=== PATIENT | male | born 1980 | race Caucasian/White ===

== ENCOUNTER 2017-03-29 03:45 | Emergency (ER) | payer OTHER ==
[~2017-03-29] VITALS: Ht 182.9 cm; Wt 63.5 kg
[~2017-03-29 03:45] MED LIST: ACET325 PO; ALBU90OI INH; AMIT50 PO; Amitriptyline H50 MG PO; BENZ2 PO; CARI350; CEPH500 PO; CHLO100 PO; CLIN300 PO; CLON2 PO; Cleocin HCl150 MG PO; DIVA125EC; FLUO20 PO; HTN MED; HYDPAM50 PO; IBUP800; INVEGA PO; LITH300C PO; LITH300ER PO; LOVA20 PO; LOXA25 PO; LURASIDONE; Lopressor 25 mg25 MG PO; MELO7.5 PO; METO25 PO; METO50 PO; METO50ER PO; Mobic7.5 MG PO; OLAN10 PO; OMEP20ER PO; OXYACE5T PO; PARO30 PO; PHENY100ER PO; PIND5 PO; PROACE100; QUET200 PO; QUET25; SERT50 PO; SIMV10 PO; SIMV5; SULTRISS PO; Simvastatin20 MG PO; TRAZ150T57 PO; VENL75ER PO; VRAYLAR3 MG PO; Zyprexa20 MG PO; [UNRECOGNIZED DRUG - OTHER]; [UNRECOGNIZED DRUG - REMARK]; [UNRECOGNIZED DRUG - REMARK]
== END 2017-03-29 05:15 ==
LOC: ER 03:45
DX: S06.9X1A Unspecified intracranial injury with loss of consciousness of 30 minutes or less, initial encounter (principal); F15.129 Other stimulant abuse with intoxication, unspecified; F31.9 Bipolar disorder, unspecified; F20.9 Schizophrenia, unspecified; I10 Essential (primary) hypertension; E78.00 Pure hypercholesterolemia, unspecified; Z88.0 Allergy status to penicillin; Z88.8 Allergy status to other drugs, medicaments and biological substances; Z79.899 Other long term (current) drug therapy; F17.200 Nicotine dependence, unspecified, uncomplicated; V48.0XXA Car driver injured in noncollision transport accident in nontraffic accident, initial encounter
CPT/HCPCS: 70450; 71046; 72125; 99284

== ENCOUNTER 2020-03-02 21:53 | Inpatient (IN) | payer MEDICARE, OTHER ==
[~2020-03-02] VITALS: Ht 180.3 cm; Wt 118.3 kg
[2020-03-02 22:37] LABS: BASOPHILS ABSOLUTE AUTO 0.04 K/mm3 (0.00-0.23); BASOPHILS PERCENT AUTO 0 % (0-2); EOSINOPHILS ABSOLUTE AUTO 0.15 K/mm3 (0.00-0.68); EOSINOPHILS PERCENT AUTO 2 % (0-6); Hematocrit 38.3 % (37.0-53.0); Hemoglobin 12.8 g/dL (13.5-17.5); IMMATURE GRAN ABSOLUTE AUTO 0.05 K/mm3 (0.00-0.10); IMMATURE GRAN PERCENT AUTO 1 % (0-1); LYMPHOCYTES ABSOLUTE AUTO 1.76 K/mm3 (0.84-5.20); LYMPHOCYTES PERCENT AUTO 18 % (21-46); MONOCYTES ABSOLUTE AUTO 1.77 K/mm3 (0.16-1.47); MONOCYTES PERCENT AUTO 18 % (4-13); Mean Corpuscular HGB 28.1 pg (26.0-34.0); Mean Corpuscular HGB Conc 33.4 g/dL (31.5-36.5); Mean Corpuscular Volume 84 fL (80-100); Mean Platelet Volume 10.5 fL (9.1-12.4); NEUTROPHILS ABSOLUTE AUTO 6.18 K/mm3 (1.96-9.15); NEUTROPHILS PERCENT AUTO 62 % (41-73); Platelet Count 222 K/mm3 (150-400); RDW Coefficient Variation 11.4 % (11.7-14.2); RDW Standard Deviation 34.8 fL (35.1-46.3); Red Blood Cell Count 4.56 M/mm3 (4.30-5.90); White Blood Cell Count 9.95 K/mm3 (4.00-11.30)
[2020-03-02 22:51] LABS: Alanine Aminotransfer (ALT/SGP 24 U/L (12-78); Albumin, Blood 3.1 g/dL (3.4-5.0); Albumin/Globulin Ratio 0.9 (0.8-1.8); Alk Phos 91 U/L (50-136); Anion Gap 5 mmol/L (6-16); Aspartate Aminotrans (AST/SGOT 15 U/L (12-37); Bilirubin, Total 0.8 mg/dL (0.1-1.0); Blood Urea Nitrogen 11 mg/dL (8-24); Bun/Creatinine Ratio 14.9 (12.0-20.0); CO2, Blood 26 mmol/L (21-32); Calcium, Blood 8.8 mg/dL (8.5-10.1); Chloride, Blood 106 mmol/L (98-108); Creatinine, Blood 0.74 mg/dL (0.60-1.20); Globulin, Blood 3.5 g/dL (2.2-4.0); Glomerular Filtration Rate >60 (60-); Glucose, Blood 169 mg/dL (70-99); Sodium, Blood 137 mmol/L (136-145); Total Protein, Blood 6.6 g/dL (6.4-8.2); Troponin I <0.015 ng/mL (0.000-0.040)
[2020-03-02 23:28] LABS: International Normalized Ratio 3.52; Prothrombin Time Results 35.1 Sec (9.7-11.5)
[2020-03-02 23:34] LABS: Influenza A, PCR Negative (NEGATIVE); Influenza B, PCR Negative (NEGATIVE); Resp Syncytial Virus, PCR Negative (NEGATIVE); SARS-Cov-2 (COVID-19) PCR, MMC Negative (NEGATIVE)
[2020-03-03 08:02] LABS: Source, Urine Clean Catch
[2020-03-03 08:11] LABS: Appearance, Urine Clear (Clear); Bilirubin, Urine Neg (Neg); Blood, Urine Neg (Neg); Color, Urine Yellow (P-Yellow); Glucose Qualitative, Urine Neg (Neg); Ketones, Urine Neg (Neg); Leukocyte Esterase, Urine Neg (Neg); Nitrite, Urine Neg (Neg); Protein, Urine 1+ (Neg); Urobilinogen, Urine 2+ (Normal)
[2020-03-03] MEDS ORDERED: QUET300 PO ×3 (09:31→09:33)
[2020-03-03] MEDS ORDERED: Jantoven3 MG PO (09:33)
[2020-03-03] MEDS ORDERED: BUSP5 (09:34)
[2020-03-03] MEDS ORDERED: METO50ER PO (09:34)
[2020-03-03] MEDS ORDERED: Amiodarone HCl200 MG PO (09:35)
[2020-03-03] MEDS ORDERED: BUSP5 PO (09:35)
[2020-03-03] MEDS ORDERED: METF500 PO (09:38)
[2020-03-03] MEDS ORDERED: DULO30 PO (09:39)
[2020-03-04 04:29] LABS: International Normalized Ratio 2.99; Prothrombin Time Results 30.1 Sec (9.7-11.5)
[2020-03-05 04:18] LABS: International Normalized Ratio 3.06; Prothrombin Time Results 30.7 Sec (9.7-11.5)
[2020-03-05] MEDS ORDERED: Pacerone400 MG PO (13:15)
[2020-03-05] MEDS ORDERED: ACET325 PO (13:18)
[2020-03-05] MEDS ORDERED: METOPROLOL TAR100 M1 PO (13:48)
== END 2020-03-05 14:21 | disposition home or self-care (01) | DRG 309 ==
LOC: ER 21:53 → ICUW 21:54 → PCU 03-03 14:47 → ICUW 03-03 14:47 → PCU 03-03 18:04
PROVIDERS: Emergency Medicine; ADMIT Family Medicine
PROC: 5A2204Z Restoration of Cardiac Rhythm, Single (ICD-10-PCS; principal; 2020-03-02)
DX: I48.19 Other persistent atrial fibrillation (principal); J98.11 Atelectasis; E78.00 Pure hypercholesterolemia, unspecified; F31.9 Bipolar disorder, unspecified; F20.9 Schizophrenia, unspecified; Z95.2 Presence of prosthetic heart valve; Z87.891 Personal history of nicotine dependence; E66.01 Morbid (severe) obesity due to excess calories; Z20.828 Contact with and (suspected) exposure to other viral communicable diseases; I10 Essential (primary) hypertension; Z79.01 Long term (current) use of anticoagulants; R07.81 Pleurodynia; Z68.36 Body mass index [BMI] 36.0-36.9, adult
CPT/HCPCS: 0241U; 36415; 71045; 71046; 74018; 80053; 82947; 83605; 83880; 84145; 84484; 85025; 85610; 87040; 92960; 93005; 93010; 96365; 96375; 99285-25; A9270; A9270-GY; G0378; J0282; J0696; J2704; J3010; J7030; J7060

== ENCOUNTER → 2020-10-15 | Outpatient (CLI) | payer MEDICARE, OTHER ==
[~2020-10-15] MED LIST changes: +Amiodarone HCl200 MG PO; +BUSP5; +BUSP5 PO; +DULO30 PO; +Jantoven3 MG PO; +METF500 PO; +METOPROLOL TAR100 M1 PO; +Pacerone400 MG PO; +QUET300 PO
[2020-10-15 16:11] LABS: Microalb/Creat Ratio UR, Rand 5.091 mg/g (0.000-30.000); Microalbumin, Random Urine 5.6 mg/L (0.000-20.000)
== END | disposition home or self-care (01) ==
LOC: LAB 13:47 → LAB SHORT 13:47
PROVIDERS: Student in an Organized Health Care Education/Training Program
DX: E11.9 Type 2 diabetes mellitus without complications (principal)
CPT/HCPCS: 82043; 82570

== ENCOUNTER → 2021-02-19 | Outpatient (CLI) | payer MEDICARE, OTHER ==
[~2021-02-19] MED LIST changes: +Aspir 8181 MG PO; +ROSUVASTATIN CA40 MG
[2021-02-19 17:00] LABS: BASOPHILS ABSOLUTE AUTO 0.09 K/mm3 (0.00-0.23); BASOPHILS PERCENT AUTO 1 % (0-2); EOSINOPHILS ABSOLUTE AUTO 0.69 K/mm3 (0.00-0.68); EOSINOPHILS PERCENT AUTO 7 % (0-6); Hematocrit 44.7 % (37.0-53.0); Hemoglobin 14.9 g/dL (13.5-17.5); IMMATURE GRAN ABSOLUTE AUTO 0.04 K/mm3 (0.00-0.10); IMMATURE GRAN PERCENT AUTO 0 % (0-1); LYMPHOCYTES PERCENT AUTO 25 % (21-46); MONOCYTES ABSOLUTE AUTO 0.95 K/mm3 (0.16-1.47); MONOCYTES PERCENT AUTO 9 % (4-13); Mean Corpuscular HGB 29.2 pg (26.0-34.0); Mean Corpuscular HGB Conc 33.3 g/dL (31.5-36.5); Mean Corpuscular Volume 88 fL (80-100); Mean Platelet Volume 10.9 fL (9.1-12.4); NEUTROPHILS ABSOLUTE AUTO 6.02 K/mm3 (1.96-9.15); NEUTROPHILS PERCENT AUTO 58 % (41-73); Platelet Count 279 K/mm3 (150-400); RDW Coefficient Variation 12.5 % (11.7-14.2); RDW Standard Deviation 40.6 fL (35.1-46.3); White Blood Cell Count 10.39 K/mm3 (4.00-11.30)
== END | disposition home or self-care (01) ==
LOC: LAB SHORT 16:43
PROVIDERS: Family Medicine
DX: S39.012A Strain of muscle, fascia and tendon of lower back, initial encounter (principal); R10.9 Unspecified abdominal pain
CPT/HCPCS: 85025

== ENCOUNTER → 2021-06-03 | Outpatient (CLI) | payer MEDICARE, OTHER | END | disposition home or self-care (01) | LOC: LAB SHORT 11:50 | DX: E11.9 Type 2 diabetes mellitus without complications (principal); E55.9 Vitamin D deficiency, unspecified | CPT/HCPCS: 82306; 83036 ==

== ENCOUNTER 2021-08-22 23:05 | Emergency (ER) | payer MEDICARE, OTHER ==
[~2021-08-22] VITALS: Ht 180.3 cm; Wt 90.7 kg
[2021-08-23] MEDS ORDERED: Cleocin HCl150 MG PO (01:48)
== END 2021-08-23 02:09 | disposition home or self-care (01) ==
LOC: ER 23:05
DX: S61.411A Laceration without foreign body of right hand, initial encounter (principal); Y04.2XXA Assault by strike against or bumped into by another person, initial encounter; I10 Essential (primary) hypertension; Z79.01 Long term (current) use of anticoagulants; Z95.2 Presence of prosthetic heart valve; Z88.0 Allergy status to penicillin; Z88.8 Allergy status to other drugs, medicaments and biological substances; Z23 Encounter for immunization
CPT/HCPCS: 73130; 90714; A9270

== ENCOUNTER → 2022-05-25 | Outpatient (CLI) | payer MEDICARE, OTHER ==
[2022-05-25 19:10] LABS: BASOPHILS ABSOLUTE AUTO 0.06 K/mm3 (0.00-0.23); BASOPHILS PERCENT AUTO 1 % (0-2); EOSINOPHILS ABSOLUTE AUTO 0.36 K/mm3 (0.00-0.68); EOSINOPHILS PERCENT AUTO 3 % (0-6); Hematocrit 46.7 % (37.0-53.0); Hemoglobin 16.2 g/dL (13.5-17.5); IMMATURE GRAN ABSOLUTE AUTO 0.04 K/mm3 (0.00-0.10); IMMATURE GRAN PERCENT AUTO 0 % (0-1); LYMPHOCYTES ABSOLUTE AUTO 2.05 K/mm3 (0.84-5.20); LYMPHOCYTES PERCENT AUTO 16 % (21-46); MONOCYTES PERCENT AUTO 11 % (4-13); Mean Corpuscular HGB 29.6 pg (26.0-34.0); Mean Corpuscular HGB Conc 34.7 g/dL (31.5-36.5); Mean Corpuscular Volume 85 fL (80-100); Mean Platelet Volume 11.1 fL (9.1-12.4); NEUTROPHILS ABSOLUTE AUTO 8.86 K/mm3 (1.96-9.15); NEUTROPHILS PERCENT AUTO 69 % (41-73); Platelet Count 263 K/mm3 (150-400); RDW Coefficient Variation 12.7 % (11.7-14.2); RDW Standard Deviation 39.3 fL (35.1-46.3); Red Blood Cell Count 5.48 M/mm3 (4.30-5.90); White Blood Cell Count 12.77 K/mm3 (4.00-11.30)
[2022-05-25 20:52] LABS: C-REACTIVE PROTEIN, EXT RANGE 0.589 mg/dL (0.000-0.300)
[2022-05-25 20:53] LABS: Albumin, Blood 4.5 g/dL (3.4-5.0); Albumin/Globulin Ratio 1.4 (0.8-1.8); Bilirubin, Total 0.7 mg/dL (0.1-1.0); Calcium, Blood 9.4 mg/dL (8.5-10.1); Creatinine, Blood 0.86 mg/dL (0.60-1.20); Globulin, Blood 3.3 g/dL (2.2-4.0); Total Protein, Blood 7.8 g/dL (6.4-8.2)
== END | disposition home or self-care (01) ==
LOC: LAB SHORT 16:10 → LAB 16:10
PROVIDERS: Family Medicine
DX: R10.12 Left upper quadrant pain (principal); R11.2 Nausea with vomiting, unspecified
CPT/HCPCS: 80053; 83690; 85025; 86140

== ENCOUNTER 2022-05-27 16:32 | Emergency (ER) | payer MEDICARE, OTHER ==
[~2022-05-27] VITALS: Ht 180.3 cm; Wt 96.6 kg
[2022-05-27 16:59] LABS: BASOPHILS ABSOLUTE AUTO 0.09 K/mm3 (0.00-0.23); BASOPHILS PERCENT AUTO 1 % (0-2); EOSINOPHILS ABSOLUTE AUTO 0.62 K/mm3 (0.00-0.68); EOSINOPHILS PERCENT AUTO 6 % (0-6); Hemoglobin 13.9 g/dL (13.5-17.5); IMMATURE GRAN ABSOLUTE AUTO 0.04 K/mm3 (0.00-0.10); IMMATURE GRAN PERCENT AUTO 0 % (0-1); LYMPHOCYTES ABSOLUTE AUTO 2.87 K/mm3 (0.84-5.20); LYMPHOCYTES PERCENT AUTO 27 % (21-46); MONOCYTES ABSOLUTE AUTO 1.11 K/mm3 (0.16-1.47); MONOCYTES PERCENT AUTO 11 % (4-13); Mean Corpuscular HGB 29.7 pg (26.0-34.0); Mean Corpuscular HGB Conc 34.8 g/dL (31.5-36.5); Mean Corpuscular Volume 86 fL (80-100); Mean Platelet Volume 10.5 fL (9.1-12.4); NEUTROPHILS ABSOLUTE AUTO 5.85 K/mm3 (1.96-9.15); NEUTROPHILS PERCENT AUTO 55 % (41-73); Platelet Count 211 K/mm3 (150-400); RDW Coefficient Variation 12.4 % (11.7-14.2); Red Blood Cell Count 4.68 M/mm3 (4.30-5.90); White Blood Cell Count 10.58 K/mm3 (4.00-11.30)
[2022-05-27 17:00] LABS: Source, Urine Clean Catch
[2022-05-27 17:02] LABS: Appearance, Urine Hazy (Clear); Bilirubin, Urine Neg (Neg); Blood, Urine 5+ (Neg); Glucose Qualitative, Urine Neg (Neg); Ketones, Urine Neg (Neg); Leukocyte Esterase, Urine 2+ (Neg); Nitrite, Urine Neg (Neg); Protein, Urine 3+ (Neg); Urobilinogen, Urine NORM (Normal)
[2022-05-27 17:14] LABS: Albumin/Globulin Ratio 1.2 (0.8-1.8); Bilirubin, Total 0.5 mg/dL (0.1-1.0); Bun/Creatinine Ratio 14.2 (12.0-20.0); Calcium, Blood 8.6 mg/dL (8.5-10.1); Creatinine, Blood 0.7 mg/dL (0.60-1.20); Globulin, Blood 3.2 g/dL (2.2-4.0); Potassium, Blood 3.4 mmol/L (3.5-5.5); Total Protein, Blood 7.2 g/dL (6.4-8.2)
[2022-05-27 17:14] LABS: Color, Urine Amber (P-Yellow)
[2022-05-27 17:24] LABS: Red Blood Cells, Urine 50-100 /hpf (0-2)
[2022-05-27 17:25] LABS: Bacteria Few /hpf; Squamous Epithelial Cells Rare /hpf (Few)
[2022-05-27 20:22] LABS: Prothrombin Time Results >90.0 Sec (9.7-11.5)
[2022-05-27 20:23] LABS: International Normalized Ratio >10.00
== END 2022-05-27 22:30 | disposition home or self-care (01) ==
LOC: ER 16:32
PROVIDERS: Physician Assistant; Student in an Organized Health Care Education/Training Program
DX: R42 Dizziness and giddiness (principal); R79.1 Abnormal coagulation profile; I10 Essential (primary) hypertension; J45.909 Unspecified asthma, uncomplicated; Z87.891 Personal history of nicotine dependence
CPT/HCPCS: 36415; 70450; 80053; 81001; 85025; 85610; A9270; J7030

== ENCOUNTER 2022-06-05 18:58 | Emergency (ER) | payer MEDICARE, OTHER ==
[~2022-06-05] VITALS: Ht 180.3 cm; Wt 97.5 kg
[2022-06-05 19:34] LABS: BASOPHILS ABSOLUTE AUTO 0.06 K/mm3 (0.00-0.23); BASOPHILS PERCENT AUTO 1 % (0-2); EOSINOPHILS ABSOLUTE AUTO 0.49 K/mm3 (0.00-0.68); EOSINOPHILS PERCENT AUTO 6 % (0-6); Hematocrit 39.9 % (37.0-53.0); Hemoglobin 13.8 g/dL (13.5-17.5); IMMATURE GRAN ABSOLUTE AUTO 0.02 K/mm3 (0.00-0.10); IMMATURE GRAN PERCENT AUTO 0 % (0-1); LYMPHOCYTES ABSOLUTE AUTO 2.52 K/mm3 (0.84-5.20); LYMPHOCYTES PERCENT AUTO 32 % (21-46); MONOCYTES ABSOLUTE AUTO 0.82 K/mm3 (0.16-1.47); MONOCYTES PERCENT AUTO 10 % (4-13); Mean Corpuscular HGB Conc 34.6 g/dL (31.5-36.5); Mean Corpuscular Volume 87 fL (80-100); Mean Platelet Volume 9.8 fL (9.1-12.4); NEUTROPHILS ABSOLUTE AUTO 4.09 K/mm3 (1.96-9.15); NEUTROPHILS PERCENT AUTO 51 % (41-73); Platelet Count 290 K/mm3 (150-400); RDW Coefficient Variation 13.1 % (11.7-14.2); RDW Standard Deviation 41.2 fL (35.1-46.3)
[2022-06-05 19:40] LABS: International Normalized Ratio 3.4; Prothrombin Time Results 33.3 Sec (9.7-11.5)
[2022-06-05 19:49] LABS: Albumin, Blood 3.7 g/dL (3.4-5.0); Albumin/Globulin Ratio 1.2 (0.8-1.8); Bilirubin, Total 0.4 mg/dL (0.1-1.0); Bun/Creatinine Ratio 8.3 (12.0-20.0); Calcium, Blood 9.2 mg/dL (8.5-10.1); Creatinine, Blood 0.72 mg/dL (0.60-1.20); Globulin, Blood 3.2 g/dL (2.2-4.0); Potassium, Blood 3.7 mmol/L (3.5-5.5); Total Protein, Blood 6.9 g/dL (6.4-8.2)
== END 2022-06-05 21:49 | disposition home or self-care (01) ==
LOC: ER 18:58
PROVIDERS: Student in an Organized Health Care Education/Training Program
DX: R07.9 Chest pain, unspecified (principal); E78.5 Hyperlipidemia, unspecified; I10 Essential (primary) hypertension; Z95.2 Presence of prosthetic heart valve; Z88.0 Allergy status to penicillin; Z88.8 Allergy status to other drugs, medicaments and biological substances; Z79.01 Long term (current) use of anticoagulants; Z79.82 Long term (current) use of aspirin; Z79.899 Other long term (current) drug therapy; Z87.891 Personal history of nicotine dependence
CPT/HCPCS: 71046; 80053; 83690; 83880; 84484; 85025; 85610; 93005; 93010; 99284-25

== ENCOUNTER → 2022-09-09 | Outpatient (CLI) | payer MEDICARE, OTHER ==
[2022-09-09 15:11] LABS: BASOPHILS ABSOLUTE AUTO 0.06 K/mm3 (0.00-0.23); BASOPHILS PERCENT AUTO 1 % (0-2); EOSINOPHILS ABSOLUTE AUTO 0.47 K/mm3 (0.00-0.68); EOSINOPHILS PERCENT AUTO 7 % (0-6); Hematocrit 42.9 % (37.0-53.0); Hemoglobin 14.8 g/dL (13.5-17.5); IMMATURE GRAN ABSOLUTE AUTO 0.04 K/mm3 (0.00-0.10); IMMATURE GRAN PERCENT AUTO 1 % (0-1); LYMPHOCYTES ABSOLUTE AUTO 1.94 K/mm3 (0.84-5.20); LYMPHOCYTES PERCENT AUTO 29 % (21-46); MONOCYTES ABSOLUTE AUTO 0.78 K/mm3 (0.16-1.47); MONOCYTES PERCENT AUTO 12 % (4-13); Mean Corpuscular HGB Conc 34.5 g/dL (31.5-36.5); Mean Corpuscular Volume 87 fL (80-100); Mean Platelet Volume 10.4 fL (9.1-12.4); NEUTROPHILS ABSOLUTE AUTO 3.31 K/mm3 (1.96-9.15); NEUTROPHILS PERCENT AUTO 50 % (41-73); Platelet Count 211 K/mm3 (150-400); RDW Coefficient Variation 12.2 % (11.7-14.2); RDW Standard Deviation 38.5 fL (35.1-46.3); Red Blood Cell Count 4.94 M/mm3 (4.30-5.90)
[2022-09-09 17:53] LABS: Alanine Aminotransfer (ALT/SGP 44 U/L (12-78); Albumin, Blood 4.2 g/dL (3.4-5.0); Albumin/Globulin Ratio 1.4 (0.8-1.8); Alk Phos 77 U/L (50-136); Anion Gap 5 mmol/L (6-16); Aspartate Aminotrans (AST/SGOT 25 U/L (12-37); Bilirubin, Total 0.4 mg/dL (0.1-1.0); Blood Urea Nitrogen 12 mg/dL (8-24); CHOL/HDL RATIO 3.3; CO2, Blood 27 mmol/L (21-32); Calcium, Blood 9.3 mg/dL (8.5-10.1); Chloride, Blood 107 mmol/L (98-108); Cholesterol 186 mg/dL (50-200); Creatinine, Blood 0.92 mg/dL (0.60-1.20); Globulin, Blood 3.1 g/dL (2.2-4.0); Glomerular Filtration Rate 108 (60-); Glucose, Blood 110 mg/dL (70-99); HDL Cholesterol 56 mg/dL (>39); LDL/HDL RATIO 1.7; Low Density Lipoprotein Chol 93 mg/dL (0-110); Potassium, Blood 4.9 mmol/L (3.5-5.5); Sodium, Blood 139 mmol/L (136-145); Total Protein, Blood 7.3 g/dL (6.4-8.2); Triglycerides 187 mg/dL (30-160); Very Low Density Lipoprot Chol 37 mg/dL (6-32)
== END | disposition home or self-care (01) ==
LOC: LAB SHORT 13:22 → LAB 13:22
PROVIDERS: Family Medicine
DX: Z13.6 Encounter for screening for cardiovascular disorders (principal); E11.9 Type 2 diabetes mellitus without complications
CPT/HCPCS: 80053; 80061; 83036; 85025

== ENCOUNTER 2024-02-07 15:58 | Inpatient (IN) | payer MEDICARE, OTHER ==
[~2024-02-07] VITALS: Ht 180.3 cm; Wt 94.5 kg
[~2024-02-07 15:58] MED LIST changes: -ROSUVASTATIN CA40 MG; +ROSUVASTATIN CA40 MG PO
[2024-02-07 16:31] LABS: BASOPHILS ABSOLUTE AUTO 0.08 K/mm3 (0.00-0.23); BASOPHILS PERCENT AUTO 1 % (0-2); EOSINOPHILS ABSOLUTE AUTO 0.56 K/mm3 (0.00-0.68); EOSINOPHILS PERCENT AUTO 8 % (0-6); Hematocrit 46.7 % (37.0-53.0); Hemoglobin 16.1 g/dL (13.5-17.5); IMMATURE GRAN ABSOLUTE AUTO 0.02 K/mm3 (0.00-0.10); IMMATURE GRAN PERCENT AUTO 0 % (0-1); LYMPHOCYTES ABSOLUTE AUTO 2.09 K/mm3 (0.84-5.20); LYMPHOCYTES PERCENT AUTO 30 % (21-46); MONOCYTES ABSOLUTE AUTO 0.89 K/mm3 (0.16-1.47); MONOCYTES PERCENT AUTO 13 % (4-13); Mean Corpuscular HGB 29.5 pg (26.0-34.0); Mean Corpuscular HGB Conc 34.5 g/dL (31.5-36.5); Mean Corpuscular Volume 86 fL (80-100); Mean Platelet Volume 10.2 fL (9.1-12.4); NEUTROPHILS ABSOLUTE AUTO 3.35 K/mm3 (1.96-9.15); NEUTROPHILS PERCENT AUTO 48 % (41-73); Platelet Count 246 K/mm3 (150-400); RDW Coefficient Variation 12.8 % (11.7-14.2); RDW Standard Deviation 39.1 fL (35.1-46.3); Red Blood Cell Count 5.45 M/mm3 (4.30-5.90); White Blood Cell Count 6.99 K/mm3 (4.00-11.30)
[2024-02-07 17:07] LABS: Albumin, Blood 4.5 g/dL (3.4-5.0); Albumin/Globulin Ratio 1.5 (0.8-1.8); Bilirubin, Total 0.7 mg/dL (0.1-1.0); Bun/Creatinine Ratio 8.3 (12.0-20.0); Calcium, Blood 10.1 mg/dL (8.5-10.1); Creatinine, Blood 0.97 mg/dL (0.60-1.20); Globulin, Blood 3.1 g/dL (2.2-4.0); Total Protein, Blood 7.6 g/dL (6.4-8.2)
[2024-02-07 17:22] LABS: International Normalized Ratio 2.67; Prothrombin Time Results 26.6 Sec (9.7-11.5)
[2024-02-07] MEDS ORDERED: FLU VACC TS2024-25(6MOS UP)/PF 45 MCG/0.5 ML SYRINGE IM SCH (19:35)
[2024-02-07] MEDS ORDERED: Albuterol 2.5 MG/3 ML VIAL INH PRN (19:40)
[2024-02-07] MEDS ORDERED: Metoprolol Tartrate 50 MG Tab PO SCH (21:00)
[2024-02-07 21:13] VITALS: BP 154/90
--- NOTE | 2024-02-07 21:47 | NUR ---
PATIENT IS A NEW ADMIT FROM THE ED. AXOX 4 AND ARRIVED VIA W/C INDEPENDENT TO BED. DENIES CHEST PAIN, SOB, AND N/V. ON ROOM AIR. NPO >MIDNIGHT. ORIENTED TO ROOM AND CALL LIGHT SYSTEM. MEDICATION RX COMPLETE. NOT SURE OF HIS WARFIN DOSING. PHARMACY CALLED AND AWARE. LEFT MED LIST WITH ER STAFF BUT NOT TRANFER TO MEDICAL FLOOR. REPORTS WANTS TO SLEEP AFTER ASSESSMENT AND SHOWER. WCTM.
[2024-02-07] MEDS ORDERED: Warfarin Sodium 2 MG Tab PO ONE (21:50)
[2024-02-07] MEDS ORDERED: QUEtiapine Fumarate 200 MG Tab PO SCH (22:30)
[2024-02-07] MEDS ORDERED: BusPIRone HCl 5 MG Tab PO SCH (22:30)
--- NOTE | 2024-02-08 04:08 | NUR ---
SHIFT SUMMARY PATIENT HAD NO ACUTE CHANGES. DENIES CHEST PAIN, SOB, AND N/V. AXO X 4 AND INDEPENDENT IN ROOM. PIV INTACT. TELE MONITOR NSR 82. BEDTIME SEROQUEL 700 MG ADDED TO EMAR WITH BUSPAR 30 MG PER PATIENT. HX BIPOLAR/SCHIZO. CBG Q6 CHECK 146. NPO FOR STRESS TEST. VSS/AFEBRILE. WATCHED TV FIRST FEW HOURS AFTER ADMIT. CALL LIGHT IN REACH. BED IN LOWEST POSITION. WILL CONTINUE TO MONITOR UNTIL DAY SHIFT NURSE ASSUMES CARE.
[2024-02-08 05:53] VITALS: BP 133/84
[2024-02-08 07:00] LABS: International Normalized Ratio 2.2; Prothrombin Time Results 22.2 Sec (9.7-11.5)
[2024-02-08 07:33] VITALS: BP 133/84
[2024-02-08 08:13] LABS: Magnesium, Blood 2.2 mg/dL (1.6-2.4); Thyroid Stimulating Hormone 1.19 uIU/mL (0.360-4.800)
[2024-02-08] MEDS ORDERED: Regadenoson 0.4 MG/5 ML SYRINGE IV SCH (13:45)
[2024-02-08] MEDS ORDERED: QUEtiapine Fumarate 200 MG Tab PO SCH (14:00)
[2024-02-08 15:20] VITALS: BP 129/77
[2024-02-08] MEDS ORDERED: ATOMOXETINE HCL80 MG PO (17:04)
[2024-02-08] MEDS ORDERED: TAMS.4ER PO (17:04)
[2024-02-08] MEDS ORDERED: GLUCOPHAGE1000 M1 PO (17:05)
[2024-02-08] MEDS ORDERED: Warfarin Sodium 3 MG Tab PO ONE (18:00)
[2024-02-08 19:32] VITALS: BP 137/95
[2024-02-08] MEDS ORDERED: Insulin Human Lispro 100 Units/ML 3ML Syringe SC SCH ×2 (21:00)
[2024-02-09] VITALS (19 sets, daily range): BP systolic 109–147; BP diastolic 78–102
[2024-02-09 05:46] LABS: BASOPHILS ABSOLUTE AUTO 0.09 K/mm3 (0.00-0.23); BASOPHILS PERCENT AUTO 1 % (0-2); EOSINOPHILS ABSOLUTE AUTO 0.54 K/mm3 (0.00-0.68); EOSINOPHILS PERCENT AUTO 7 % (0-6); Hemoglobin 15.5 g/dL (13.5-17.5); IMMATURE GRAN ABSOLUTE AUTO 0.02 K/mm3 (0.00-0.10); IMMATURE GRAN PERCENT AUTO 0 % (0-1); LYMPHOCYTES PERCENT AUTO 38 % (21-46); MONOCYTES ABSOLUTE AUTO 0.92 K/mm3 (0.16-1.47); MONOCYTES PERCENT AUTO 12 % (4-13); Mean Corpuscular HGB 29.5 pg (26.0-34.0); Mean Corpuscular HGB Conc 34.4 g/dL (31.5-36.5); Mean Corpuscular Volume 86 fL (80-100); Mean Platelet Volume 10.4 fL (9.1-12.4); NEUTROPHILS ABSOLUTE AUTO 3.09 K/mm3 (1.96-9.15); NEUTROPHILS PERCENT AUTO 42 % (41-73); Platelet Count 229 K/mm3 (150-400); RDW Coefficient Variation 12.7 % (11.7-14.2); RDW Standard Deviation 39.2 fL (35.1-46.3); Red Blood Cell Count 5.25 M/mm3 (4.30-5.90); White Blood Cell Count 7.46 K/mm3 (4.00-11.30)
[2024-02-09 05:52] LABS: International Normalized Ratio 2.07
[2024-02-09 05:56] LABS: Bun/Creatinine Ratio 12.1 (12.0-20.0); Calcium, Blood 9.5 mg/dL (8.5-10.1); Creatinine, Blood 1.07 mg/dL (0.60-1.20); Magnesium, Blood 2.6 mg/dL (1.6-2.4); Phosphorus, Blood 4.1 mg/dL (2.5-4.9); Potassium, Blood 4.2 mmol/L (3.5-5.5)
--- NOTE | 2024-02-09 06:00 | NUR ---
SHIFT SUMMARY: PATIENT A/OX4, CALM, PLEASANT AND COOPERATIVE c CARE. PATIENT DENIES CP/PRESSURE, SOB, N/V AND DIZZINESS. PATIENT HAS HAD NO EVENTS ON TELE, SR HR IN THE 70'S BPM. PATIENT HAD ABNORMAL STRESS TEST RESULT. DR. REYES ORDERED CARDIOLOGY CONSULT. PATIENT CARDIOLOGY CONSULT WAS CALLED IN LAST NIGHT, SPOKE TO ANSWERING SERVICE AT 2229. PATIENT PLACED ON NPO AT [place], FOR POSSIBLE CORONARY ANGIOGRAM SOMETIMES TODAY. PATIENT SLEPT ON/OFF, CONTINENT OF BLADDER, AMBULATES TO BATHROOM INDEPENDENTLY T/O SHIFT. PATIENT RECEIVED SCHEDULED MEDS PER EMAR. VITAL SIGNS REVIEWED. CALL LIGHT IN REACH.
[2024-02-09] MEDS ORDERED: DULoxetine HCL 60 MG Capsule DR PO SCH (11:00)
[2024-02-09] MEDS ORDERED: Atomoxetine HCL 40 MG Cap PO SCH (11:00)
[2024-02-09] MEDS ORDERED: Verapamil HCL 2.5 MG/ML 2ML Injection ONE (13:13)
[2024-02-09] MEDS ORDERED: NS 250 ML IV ONE (13:14)
[2024-02-09] MEDS ORDERED: Heparin Sodium 1000 Units/ML 10ML MDV ONE (13:14)
[2024-02-09] MEDS ORDERED: NS 1,000 ML IV ONE ×2 (13:14→13:25)
[2024-02-09] MEDS ORDERED: Nitroglycerin 2 MG/20 ML BTL ONE (13:14)
[2024-02-09] MEDS ORDERED: FentaNYL Citrate 50 MCG/ML 2 ML Injection ONE (13:24)
[2024-02-09] MEDS ORDERED: Midazolam HCl 1MG / ML 2ML Vial ONE (13:25)
[2024-02-09] MEDS ORDERED: Aspirin 325 MG Tab ONE (13:53)
--- NOTE | 2024-02-09 14:44 | NUR ---
PT ARRIVES TO RECOVERY ROOM S/P ANGIOGRAM. PT. ALERT AND ORIENTED, SITTING UP IN RECLINER. AWAITING BED IN PCU. TR BAND TO RIGHT RADIAL SITE, WNL, NO OOZING NO HEMATOMA. 10CC OF AIR IN BAND. PT PROVIDED WITH SNACKS PER REQUEST. VSS.
--- NOTE | 2024-02-09 16:45 | NUR ---
PT WAS TRANSFERRED TO U 12 VIA W/C, CONDITION STABLE. REPORT GIVEN TO TANJA WALSH AND SITE INSPECTED.
--- NOTE | 2024-02-09 17:18 | NUR ---
TRANSFER NOTE: PATIENT TRANSFERRED TO PCU ROOM 12 AFTER CARDIAC ANGIOGRAM. REPORT CALLED TO PCU NURSE MABEL. BELONGINGS WERE GATHERED FROM ROOM ALONG WITH INSULIN PEN ASIGNED TO PATIENT AND WALKED DOWN TO PCU BY SABINE CONNOLLY.
[2024-02-09] MEDS ORDERED: Warfarin Sodium 3 MG Tab PO SCH (18:00)
--- NOTE | 2024-02-09 19:17 | NUR ---
SHIFT SUMMARY A&O X4, ABLE TO MAKE NEEDS KNOWN, OBEYS COMMANDS, ABLE TO MOVE ALL EXTREMITIES EQUALLY, TRANSFERRED SELF FROM WHEEL CHAIR TO BED. SPO2 GREATER THAN 90% ON RA, LUNGS CLEAR T/O. TELE MONITORING, SINUS RHYTHM, HR 60-70 S, BP STABLE WITH MAP GREATER THAN 65, DENIES CHEST P/P AT THIS TIME. DENIES NAUSEA AT THIS TIME, DENIES FEELINGS OF CONSTIPATION, DID REPORT CONCERNS OF NO BM TODAY 02/08. PT REPORTS SHARP RIGHT SHOULDER PAIN THAT COMES AND GOES OFFERED ICE PACK AND PT DECLINED. PT FROM MEDICAL FLOOR ROOM 346 TO SURVEILLANCE INSPECTOR FOR PROCEDURE AND TO PCU 12 FOR RECOVERY FOR ANGIOGRAM. PT ARRIVED FOR SURVEILLANCE INSPECTOR @ APPROX 1640. DID BESIDE SHIFT REPORT WITH RN. ORI. ANGIO SITE SOFT, LITTLE TO NO OOZING, NO SIGNS OF HEMATOMA OR INFECTION, PT EDUCATED ON TO NOT USE RIGHT WRIST/ HAND DUE TO ANGIOGRAM SITE, RIGHT WRIST IN ARM BOARD. TR BAND RECOVERED PER ORDERS @ 1850
[2024-02-09] MEDS ORDERED: Tamsulosin HCl 0.4 MG Cap PO SCH (21:00)
[2024-02-09] MEDS ORDERED: Rosuvastatin Calcium 10 MG Tab PO SCH (21:00)
[2024-02-09] MEDS ORDERED: Acetaminophen 500 MG Tab PO PRN (21:05)
[2024-02-10 00:01] VITALS: BP 115/78
[2024-02-10 04:33] VITALS: BP 109/74
[2024-02-10 05:20] LABS: Hematocrit 45.1 % (37.0-53.0); Hemoglobin 15.6 g/dL (13.5-17.5)
--- NOTE | 2024-02-10 05:22 | NUR ---
SHIFT SUMMARY ASSUMED CARE OF PT AT 1900. PT IS A/OX4. HEART SOUNDS REGULAR. LUNG SOUNDS CLEAR. TR BAND OFF AT 1999. SMALL AMOUNT OF DRAINIAGE AT SITE. PT HAD NO NEW COMPLAINTS FROM SITE. PT RESTED EYES T/O THE NOC. STATES SOME R SHOULDER PAIN, MEDICATED PER EMAR.
[2024-02-10 05:34] LABS: International Normalized Ratio 2.38; Prothrombin Time Results 23.9 Sec (9.7-11.5)
[2024-02-10 05:42] LABS: Bun/Creatinine Ratio 12.5 (12.0-20.0); Calcium, Blood 8.9 mg/dL (8.5-10.1); Creatinine, Blood 0.88 mg/dL (0.60-1.20)
[2024-02-10 09:31] VITALS: BP 118/77
[2024-02-10 12:00] VITALS: BP 131/94
--- NOTE | 2024-02-10 15:51 | NUR ---
DISCHARGE SUMMARY @ 1207 A&O X4, ABLE TO MAKE NEEDS KNOWN, OBEYS COMMANDS, ABLE TO MOVE ALL EXTREMITIES EQUALLY, IND IN ROOM. SPO2 GREATER THAN 90% ON RA, LUNGS CLEAR T/O. TELE MONITORING, SINUS RHYTHM, HR 60-70 S, BP STABLE WITH MAP GREATER THAN 65, DENIES CHEST P/P AT THIS TIME. DENIES NAUSEA AT THIS TIME, DENIES FEELINGS OF CONSTIPATION. PT EDUCATED ON ANGIOGRAM CARE/MANAGEMENT/ CONCERNS. / HEART HEALTHY DIET. EDUCATED ON UNSPECIFIC CHEST PAINS. EDUCATED TO FOLLOW UP WITH PCP AND GIVE THEIR OFFICE A CALL TO SCHEDURE AN APPOINTMENT. EDUCATED ON CHANGES TO MEDICATIONS. PT VERBALIZED UNDERSTANDING TO EDUCATIONS AND THIS RN ANSWERED ANY QUESTIONS THEY HAD. PT WHEELED OUT BY MEDICAL STAFF TO PROVIDE TAXI.
== END 2024-02-10 12:08 | disposition home or self-care (01) | DRG 287 ==
LOC: ER 15:58 → MEDS 15:59 → PCU 02-09 16:24
PROVIDERS: Emergency Medicine; Nurse Practitioner Acute Care; ADMIT Student in an Organized Health Care Education/Training Program
PROC: 4A023N7 Measurement of Cardiac Sampling and Pressure, Left Heart, Percutaneous Approach (ICD-10-PCS; principal; 2024-02-09)
PROC: B2111ZZ Fluoroscopy of Multiple Coronary Arteries using Low Osmolar Contrast (ICD-10-PCS; 2024-02-09)
DX: R07.89 Other chest pain (principal); I48.0 Paroxysmal atrial fibrillation; I10 Essential (primary) hypertension; F31.9 Bipolar disorder, unspecified; E11.9 Type 2 diabetes mellitus without complications; E78.00 Pure hypercholesterolemia, unspecified; F20.9 Schizophrenia, unspecified; G89.29 Other chronic pain; I48.91 Unspecified atrial fibrillation; F12.90 Cannabis use, unspecified, uncomplicated; J45.909 Unspecified asthma, uncomplicated; Z95.2 Presence of prosthetic heart valve; Z88.8 Allergy status to other drugs, medicaments and biological substances; Z88.0 Allergy status to penicillin; Z79.82 Long term (current) use of aspirin; Z79.84 Long term (current) use of oral hypoglycemic drugs; Z79.01 Long term (current) use of anticoagulants; Z90.89 Acquired absence of other organs; Z87.891 Personal history of nicotine dependence; Z98.890 Other specified postprocedural states; Z79.2 Long term (current) use of antibiotics
CPT/HCPCS: 36415; 71046; 76937; 78452; 80048; 80053; 82947; 83690; 83735; 84100; 84443; 84484; 85014; 85018; 85025; 85610; 93005; 93010; 93017; 93454; 94760; 94762; 99152; 99285-25; A9270; A9500; C1769; C1887; C1894; G0378; J1644; J2250; J2785; J3010; J7030; J7050; Q9967